=== PATIENT | female | born 1995 | race African-American/Black ===

== ENCOUNTER 2016-10-17 14:00 | Emergency (ER) | payer OTHER ==
[2016-10-17 14:15] VITALS: BP 111/75
--- NOTE | 2016-10-17 14:32 | ED Physician Documentation ---
PD HPI URI - Stated complaint Stated Complaint: SWOLLEN FACE - Chief complaint Chief Complaint: Heent - History obtained from History obtained from: Patient - History of Present Illness Timing - onset: How many days ago (2-3) Timing duration: Days Timing details: Gradual onset, Still present (worsening) Associated symptoms: Fever, Chills, Sore throat, Swollen nodes. No: Dry cough, NVD Contributing factors: No: Sick contact, Travel, Immunocompromised Improves by: No: Rest Worsened by: Activity Similar symptoms before: Has not had sx before Recently seen: Not recently seen Review of Systems Constitutional: reports: Fever, Chills, Myalgias Nose: denies: Rhinorrhea / runny nose, Congestion Throat: reports: Sore throat, Swollen tonsils Respiratory: denies: Cough GI: reports: Nausea. denies: Vomiting, Diarrhea Skin: denies: Rash, Lesions Musculoskeletal: denies: Neck pain PD PAST MEDICAL HISTORY - Past Medical History Past Medical History: No Endocrine/Autoimmune: None - Past Surgical History Past Surgical History: No - Present Medications Home Medications: Ambulatory Orders Medication Instructions Recorded Confirmed Cephalexin [Keflex] 500 mg PO QID #24 capsule 10/17/16 Dexamethasone [Decadron] 4 mg PO DAILY #5 tablet 10/17/16 HYDROcod/ACETAM 5/325 [[place] 5/325] 1 tab PO Q6H PRN #15 tablet 10/17/16 - Allergies Allergies/Adverse Reactions: Allergies Allergy/AdvReac Type Severity Reaction Status Date / Time iodine Allergy Unknown Verified 10/17/16 14:13 - Social History Does the pt smoke?: No Smoking Status: Never smoker PD ED PE NORMAL - Vitals Vital signs reviewed: Yes - General General: Alert and oriented X 3, Well developed/nourished - HEENT HEENT: Ears normal. No: Pharynx benign (tonsils enlarged with euxdate. No peritonsillar swelling nor deviation. ) - Neck Neck: Supple, no meningeal sign, Other (anterior adenopathy) - Cardiac Cardiac: RRR (tachy), No murmur - Respiratory Respiratory: Clear bilaterally - Abdomen Abdomen: Soft, Non distended - Derm Derm: Normal color, Warm and dry, No rash - Extremities Extremities: No tenderness to palpate, No edema, No calf tenderness / cord - Neuro Neuro: Alert and oriented X 3, No motor deficit, Normal speech Results - Vitals Vitals: Oxygen O2 Source Room air - Labs Labs: Laboratory Tests 10/17/16 14:37 Group A Strep Rapid POSITIVE H PD MEDICAL DECISION MAKING - ED course Complexity details: reviewed results, considered differential (still some tachycardic but appears okay, and no murmur nor rub, good vitals otherwise. It is sinus tachycardia. ), d/w patient Departure - Departure Disposition: Home, Self Care Clinical Impression: Acute streptococcal tonsillitis Qualifiers: Streptococcal tonsillitis recurrence: non-recurrent Qualified Code(s): J03.00 - Acute streptococcal tonsillitis, unspecified Condition: Stable Record reviewed to determine appropriate education?: Yes Instructions: ED Strep Pharyngitis Conf Follow-Up: SOPHIA Banerjee [Provider Group] Prescriptions: Dexamethasone [Decadron] 4 mg PO DAILY #5 tablet Cephalexin [Keflex] 500 mg PO QID #24 capsule HYDROcod/ACETAM 5/325 [[place] 5/325] 1 tab PO Q6H PRN #15 tablet PRN Reason: Pain Comments: Drink lots of fluids. Tylenol or ibuprofen if needed for fever and pains. Decadron daily for 5 days for inflammation of the tonsils. Cephalexin for the infection. Recheck if not improving over the next couple of days. Off work for 2 days due to illness. Forms: Activity restrictions Discharge Date/Time: 10/17/16 15:22
[2016-10-17] MEDS ORDERED: DEXAMETHASONE 10 MG/ML VIAL PO STA (14:41)
[2016-10-17] MEDS ORDERED: CEPHALEXIN 250 MG CAPSULE PO STA (14:41)
[2016-10-17] MEDS ORDERED: ONDANSETRON ODT 4 MG TABLET TL STA (14:41)
[2016-10-17] MEDS ORDERED: ACETAMINOPHEN 325 MG TABLET PO STA (14:41)
[2016-10-17] MEDS ORDERED: DEXAMETHASONE 10 MG/ML VIAL ONE (14:47)
[2016-10-17] MEDS ORDERED: ONDANSETRON ODT 4 MG TABLET ONE ×2 (14:47→14:48)
[2016-10-17] MEDS ORDERED: CHERRY SYRUP 10 ML UDC PO ONE (14:47)
[2016-10-17] MEDS ORDERED: ACETAMINOPHEN 325 MG TABLET PO ONE (14:47)
[2016-10-17] MEDS ORDERED: CEPHALEXIN 250 MG CAPSULE PO ONE (14:47)
[2016-10-17 14:49] LABS: RAPID STREP SCREEN REAGENT QC YELLOW (YELLOW)
== END 2016-10-17 15:22 | disposition home or self-care (01) ==
LOC: ED 14:00
DX: J03.00 Acute streptococcal tonsillitis, unspecified (principal)
CPT/HCPCS: 87430; 99283; A9270; Q0162

== ENCOUNTER 2019-02-10 07:32 | Emergency (ER) | payer OTHER ==
[2019-02-10] MEDS ORDERED: SODIUM CHLORIDE FLUSH 0.9% 10 ML SYRINGE ONE (08:23)
--- NOTE | 2019-02-10 08:24 | ED Physician Documentation ---
History of Present Illness - Stated complaint Stated Complaint: RASH/EYES SWELLING - Chief complaint Chief Complaint: Allergic Rx - History obtained from History obtained from: Patient - History of Present Illness Timing: Other (1 month ago) Pain level max: 0 Pain level now: 0 - Additonal information Additional information: Rash to the scalp, bilateral antecubital fossa and behind the knees bilaterally. Very itchy. Saw her doctor and was placed on oral steroids, states this did not seem to help much. She saw an business and marketing teacher as well and had allergy testing but does not have the results until she goes back to see him tomorrow. Review of Systems Constitutional: denies: Fever, Chills Ears: denies: Ear pain Nose: denies: Rhinorrhea / runny nose, Congestion Cardiac: denies: Chest pain / pressure Respiratory: denies: Cough GI: denies: Vomiting, Diarrhea Skin: denies: Rash Musculoskeletal: denies: Neck pain, Back pain Neurologic: denies: Headache PD PAST MEDICAL HISTORY - Past Medical History Past Medical History: Yes Endocrine/Autoimmune: None Derm: Eczema - Past Surgical History Past Surgical History: No - Present Medications Home Medications: Ambulatory Orders Medication Instructions Recorded Confirmed Triamcinolone 0.1% Cream [Kenalog 1 applic TOP BID PRN #2 tube 02/10/19 0.1% Cream] predniSONE [Deltasone] 10 mg PO [id number] #42 tab 02/10/19 - Allergies Allergies/Adverse Reactions: Allergies Allergy/AdvReac Type Severity Reaction Status Date / Time iodine Allergy Unknown Verified 02/10/19 07:42 - Social History Does the pt smoke?: No Smoking Status: Never smoker PD ED PE NORMAL - Vitals Vital signs reviewed: Yes - General General: Alert and oriented X 3, No acute distress - HEENT HEENT: Moist mucous membranes - Neck Neck: Supple, no meningeal sign - Cardiac Cardiac: RRR - Respiratory Respiratory: No respiratory distress, Clear bilaterally - Derm Derm: Warm and dry, Other (dry scaly patches to B Antecubital fossa and behind both knees. Also bilateral temporal areas.) - Neuro Neuro: Alert and oriented X 3 Results - Vitals Vitals: Vital Signs - 24 hr 02/10/19 02/10/19 07:39 08:58 Temperature 36.9 C Heart Rate 88 79 Respiratory 20 16 Rate Blood Pressure 131/85 H 123/99 H O2 Saturation 96 99 Oxygen O2 Source Room air PD MEDICAL DECISION MAKING - ED course Complexity details: considered differential, d/w patient ED course: Patient with what appears to be eczema. Will trial on steroids and triamcinolone cream. she will follow-up with her doctor for further care. Patient counseled regarding signs and symptoms for which I believe and urgent re-evaluation would be necessary. Patient with good understanding of and agreement to plan and is comfortable going home at this time This document was made in part using voice recognition software. While efforts are made to proofread this document, sound alike and grammatical errors may occur. Departure - Departure Disposition: Home, Self Care Clinical Impression: Eczema Qualifiers: Eczema type: unspecified Qualified Code(s): L30.9 - Dermatitis, unspecified Condition: Good Instructions: ED Dermatitis Atopic Eczema Follow-Up: your,doctor tomorrow [Other] Prescriptions: predniSONE [Deltasone] 10 mg PO [id number] #42 tab Triamcinolone 0.1% Cream [Kenalog 0.1% Cream] 1 applic TOP BID PRN #2 tube PRN Reason: eczema Comments: Use the medications as prescribed. Follow-up with your business and marketing teacher tomorrow. Return if you worsen. Discharge Date/Time: 02/10/19 08:58
[2019-02-10 08:59] VITALS: BP 123/99
== END 2019-02-10 08:58 | disposition home or self-care (01) ==
LOC: ED 07:32
DX: L30.9 Dermatitis, unspecified (principal)
CPT/HCPCS: 99282; 99284

== ENCOUNTER 2019-07-14 11:09 | Emergency (ER) | payer OTHER ==
[2019-07-14 12:37] LABS: BILIRUBIN,URINE NEGATIVE (NEGATIVE); GLUCOSE, URINE (UA) NEGATIVE (NEGATIVE); KETONES,URINE (UA) NEGATIVE (NEGATIVE); LEUKOCYTE ESTERASE, URINE NEGATIVE (NEGATIVE); NITRITE,URINE NEGATIVE (NEGATIVE); OCCULT BLOOD,URINE NEGATIVE (NEGATIVE); PH,URINE 7.5 PH (5.0-7.5); PROTEIN,URINE NEGATIVE (NEGATIVE); UROBILINOGEN,URINE 0.2 (NORMAL) E.U./dL (NORMAL)
[2019-07-14 12:47] LABS: BACTERIA,URINE None Seen /HPF (None Seen); CLARITY,URINE CLEAR (CLEAR); RBC,URINE None Seen /HPF (0-5); SQUAMOUS EPITHELIAL CELL,UR FEW Squamous (<= Few)
[2019-07-14 12:48] LABS: HCG UR QUAL NEGATIVE
--- NOTE | 2019-07-14 12:49 | ED Physician Documentation ---
PD HPI NVD - Stated complaint Stated Complaint: NAUSEA/DIZZINESS - Chief complaint Chief Complaint: General - History obtained from History obtained from: Patient - History of Present Illness Timing - onset: How many weeks ago (1) Timing - duration: Weeks (1) Timing - details: Gradual onset, Still present Associated symptoms: Abdominal pain, Dizzy. No: Fever Contributing factors: No: Sick contact, Bad food, Travel, Recent antibiotics, Alcohol use, Anticoagulated, Diabetes Improved by: Laying still Worsened by: Moving Similar symptoms before: Has not had sx before Recently seen: Not recently seen - Additonal information Additional information: Previously well 24-year-old female has developed nausea and vomiting as well as some left upper quadrant abdominal pain and she has become dizzy when she goes to get up and move around. She denies any dizziness just by moving her head. She has not had cough or congestion she has not had fever. She does not know why she developed the nausea and vomiting but she continues to be nauseated and she is not able to eat food or drink fluids without pain in her abdomen and nausea. She denies . Review of Systems Constitutional: denies: Fever, Chills, Myalgias Eyes: denies: Decreased vision Ears: denies: Ear pain Nose: denies: Rhinorrhea / runny nose, Congestion Throat: denies: Oral lesions / sores, Sore throat Cardiac: denies: Chest pain / pressure, Palpitations Respiratory: denies: Dyspnea, Cough GI: reports: Abdominal Pain, Nausea, Vomiting : denies: Dysuria, Frequency Skin: denies: Rash Musculoskeletal: denies: Neck pain, Back pain, Extremity pain PD PAST MEDICAL HISTORY - Past Medical History Endocrine/Autoimmune: None Derm: Eczema - Past Surgical History Past Surgical History: No - Present Medications Home Medications: Ambulatory Orders Medication Instructions Recorded Confirmed Ondansetron Odt [Zofran] 4 mg TL Q6H PRN #10 tablet 07/14/19 - Allergies Allergies/Adverse Reactions: Allergies Allergy/AdvReac Type Severity Reaction Status Date / Time iodine Allergy Unknown Verified 07/14/19 11:24 - Social History Does the pt smoke?: No Smoking Status: Never smoker Does the pt drink ETOH?: No Does the pt have substance abuse?: No - Immunizations Immunizations are current?: Yes PD ED PE NORMAL - Vitals Vital signs reviewed: Yes (normal ) - General General: Alert and oriented X 3, No acute distress, Well developed/nourished - HEENT HEENT: Atraumatic, PERRL, EOMI, Other (no nystagmus) - Neck Neck: Supple, no meningeal sign, No bony TTP - Cardiac Cardiac: RRR, Other (split second sound) - Respiratory Respiratory: No respiratory distress, Clear bilaterally - Abdomen Abdomen: Normal bowel sounds, Soft, Non distended, No organomegaly, Other (mild left upper quadrant tenderness without tenderness to the CVA) - Back Back: No CVA TTP, No spinal TTP - Derm Derm: Normal color, Warm and dry, No rash - Extremities Extremities: No deformity, No edema, No calf tenderness / cord - Neuro Neuro: supervisor prep 2-12 intact, No motor deficit, No sensory deficit, Normal speech Eye Opening: Spontaneous Motor: Obeys Commands Verbal: Oriented GCS Score: 15 - Psych Psych: Normal mood, Normal affect Results - Vitals Vitals: Vital Signs - 24 hr 07/14/19 07/14/19 07/14/19 11:15 11:22 13:13 Temperature 36.8 C Heart Rate 96 90 80 Respiratory 20 16 16 Rate Blood Pressure 123/74 126/74 108/74 O2 Saturation 99 100 100 07/14/19 07/14/19 14:26 14:58 Temperature 37 C 37.1 C Heart Rate 88 72 Respiratory 16 16 Rate Blood Pressure 106/71 110/65 O2 Saturation 100 100 Oxygen O2 Source Room air - Labs Labs: Laboratory Tests 07/14/19 07/14/19 07/14/19 11:55 13:05 13:05 WBC 4.0 L RBC 4.60 Hgb 12.5 Hct 39.2 MCV 85.2 MCH 27.2 MCHC 31.9 L RDW 13.1 Plt Count 296 MPV 8.7 Neut # (Auto) 2.2 Lymph # (Auto) 1.4 L [place] # (Auto) 0.4 Eos # (Auto) 0.1 Baso # (Auto) 0.0 Absolute Nucleated RBC 0.00 Nucleated RBC % 0.0 Sodium 137 Potassium 3.6 Chloride 102 Carbon Dioxide 26 Anion Gap 9.0 BUN 6 Creatinine 0.8 Estimated GFR (MDRD) 107 Glucose 88 Calcium 9.0 Total Bilirubin 0.9 AST 16 ALT 12 Alkaline Phosphatase 65 Total Protein 7.5 Albumin 4.0 Globulin 3.5 Albumin/Globulin Ratio 1.1 Lipase 22 Urine Color YELLOW Urine Clarity CLEAR Urine pH 7.5 Ur Specific [place] 1.010 Urine Protein NEGATIVE Urine Glucose (UA) NEGATIVE Urine Ketones NEGATIVE Urine Occult Blood NEGATIVE Urine Nitrite NEGATIVE Urine Bilirubin NEGATIVE Urine Urobilinogen 0.2 (NORMAL) Ur Leukocyte Esterase NEGATIVE Urine RBC None Seen Urine WBC 0-3 Ur Squamous Epith Cells FEW Squamous Urine Bacteria None Seen Urine Culture Comments NOT INDICATED Urine HCG, Qual NEGATIVE Procedures - IVC sono (time) 1245 Bedside IVC sono: IVC measures (cm) (1.09), Dehydration (est 1 liter deficit) PD MEDICAL DECISION MAKING - ED course Complexity details: reviewed old records, reviewed results, re-evaluated patient, considered differential, d/w patient ED course: Previously well 24-year-old female with nausea and vomiting is mildly dehydrated on interrogation the inferior vena cava.. She is administered normal saline and Zofran. Departure - Departure Disposition: 01 Home, Self Care Clinical Impression: Dehydration Vomiting Qualifiers: Vomiting type: unspecified Vomiting Intractability: non-intractable Nausea presence: with nausea Qualified Code(s): R11.2 - Nausea with vomiting, unspecified Condition: Stable Instructions: ED Dehydration, ED Nausea Vomiting Follow-Up: ALESSANDRO WELLS III, MD [Primary Care Provider] - Prescriptions: Ondansetron Odt [Zofran] 4 mg TL Q6H PRN #10 tablet PRN Reason: Nausea / Vomiting Discharge Date/Time: 07/14/19 14:58
[2019-07-14] MEDS: ONDANSETRON 4 MG/2 ML VIAL IVP STA (13:11)
[2019-07-14] MEDS: SODIUM CHLORIDE 0.9% 1,000 ML IV ONE (13:12)
[2019-07-14 13:14] LABS: BASOPHILS % (AUTO) 0.5 %; EOSINOPHILS # (AUTO) 0.1 10^3/uL (0.0-0.7); EOSINOPHILS % (AUTO) 1.7 %; HGB - HEMOGLOBIN 12.5 g/dL (12.0-16.0); LYMPHOCYTES # (AUTO) 1.4 10^3/uL (1.5-3.5); LYMPHOCYTES % (AUTO) 34.4 %; MEAN CORPUSCULAR HEMOGLOBIN 27.2 pg (27.0-31.0); MEAN CORPUSCULAR HGB CONC 31.9 g/dL (32.0-36.0); MEAN CORPUSCULAR VOLUME 85.2 fL (81.0-99.0); MEAN PLATELET VOLUME 8.7 fL (7.9-10.8); MONOCYTES # (AUTO) 0.4 10^3/uL (0.0-1.0); MONOCYTES % (AUTO) 9.4 %; NEUTROPHILS # (AUTO) 2.2 10^3/uL (1.5-6.6); NEUTROPHILS % (AUTO) 53.8 %; PLT - PLATELET COUNT 296 10^3/uL (130-450); RED CELL DISTRIBUTION WIDTH 13.1 % (12.0-15.0)
[2019-07-14 13:33] LABS: ALBUMIN/GLOBULIN RATIO 1.1 (1.0-2.2); BILIRUBIN,TOTAL 0.9 mg/dL (0.2-1.0); CREATININE 0.8 mg/dL (0.4-1.0); TOTAL PROTEIN 7.5 g/dL (6.7-8.2)
[2019-07-14 14:58] VITALS: BP 110/65
== END 2019-07-14 14:58 | disposition home or self-care (01) ==
LOC: ED 11:09
DX: E86.0 Dehydration (principal); R11.2 Nausea with vomiting, unspecified
CPT/HCPCS: 36415; 80053; 81001; 81025; 83690; 85025; 87086; 96361; 96374; 99284

== ENCOUNTER 2021-01-24 11:25 | Emergency (ER) | payer OTHER ==
[2021-01-24] MEDS ORDERED: predniSONE 20 MG TABLET PO STA (13:29)
--- NOTE | 2021-01-24 13:37 | ED Physician Documentation ---
History of Present Illness - Stated complaint Stated Complaint: BODY RASH/PAIN - Chief complaint Chief Complaint: Allergic Rx - History obtained from History obtained from: Patient - History of Present Illness Timing: How many weeks ago (1) Pain level max: 4 Pain level now: 3 - Additonal information Additional information: Patient is a 25-year-old female who presents to the emergency department stating for the past week she has had a rash started around her neck, ears and then down her back. She describes it as itchy and painful. Nothing makes it better or worse. 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 She states that it improved with prednisone. No fevers. No chills. No recent illnesses. No new medications, soaps, detergents, etc. Review of Systems Constitutional: denies: Fever, Chills Respiratory: denies: Cough GI: denies: Abdominal Pain, Nausea, Vomiting, Diarrhea : denies: Dysuria, Now EGA Neurologic: denies: Headache PD PAST MEDICAL HISTORY - Past Medical History Cardiovascular: None Respiratory: None Neuro: None Endocrine/Autoimmune: None GI: None PROFESSOR/NURSE ANESTHETIST: None : None HEENT: None Psych: None Musculoskeletal: Chronic back pain Derm: Eczema - Past Surgical History Past Surgical History: No - Present Medications Home Medications: Ambulatory Orders Medication Instructions Recorded Confirmed Loratadine/Pseudoephedrine 1 tab ORAL DAILY PRN 01/24/21 01/24/21 [Claritin-D 12 Hour Tablet] predniSONE [Deltasone] 10 mg PO [id number] #42 tab 01/24/21 - Allergies Allergies/Adverse Reactions: Allergies Allergy/AdvReac Type Severity Reaction Status Date / Time iodine Allergy Unknown Verified 01/24/21 11:45 shellfish derived Allergy Anaphylaxis Verified 01/24/21 11:45 - Social History Does the pt smoke?: No Smoking Status: Never smoker Does the pt drink ETOH?: Yes ETOH Use: Wine Does the pt have substance abuse?: No - Immunizations Immunizations are current?: Yes PD ED PE NORMAL - Vitals Vital signs reviewed: Yes - General General: Alert and oriented X 3, No acute distress - HEENT HEENT: Moist mucous membranes - Neck Neck: Supple, no meningeal sign - Cardiac Cardiac: RRR - Respiratory Respiratory: No respiratory distress, Clear bilaterally - Derm Derm: Warm and dry, Other (Diffuse maculopapular rash over the neck, tops of the ears, back. This is covered with a silvery scale. No evidence of infection. No pustules. No blisters) - Neuro Neuro: Alert and oriented X 3 - Psych Psych: Normal mood Results - Vitals Vitals: Vital Signs - 24 hr 01/24/21 01/24/21 11:46 14:21 Temperature 36.2 C L 36.5 C Heart Rate 80 80 Respiratory 18 16 Rate Blood Pressure 114/74 112/72 O2 Saturation 98 98 Oxygen O2 Source Room air PD MEDICAL DECISION MAKING - ED course Complexity details: considered differential, d/w patient ED course: Patient with what appears to be an eczematous rash. We will place her on a prednisone taper and have her follow-up with dermatology for further care. Patient counseled regarding signs and symptoms for which I believe and urgent re-evaluation would be necessary. Patient with good understanding of and agreement to plan and is comfortable going home at this time This document was made in part using voice recognition software. While efforts are made to proofread this document, sound alike and grammatical errors may occur. Departure - Departure Disposition: 01 Home, Self Care Clinical Impression: Dermatitis Condition: Good Instructions: ED Dermatitis Atopic Eczema Follow-Up: MARITZA RAMIREZ MD [Primary Care Provider] - Prescriptions: predniSONE [Deltasone] 10 mg PO [id number] #42 tab Comments: I spoke with Flavia NAQVI about seeing you for dermatology. The address is [address] [place], [place]. Phone number is [phone] Please call for an appointment. Your prescriptions were sent to [facility] in [place]. Forms: Activity restrictions Discharge Date/Time: 01/24/21 14:21
[2021-01-24 14:22] VITALS: BP 112/72
== END 2021-01-24 14:21 | disposition home or self-care (01) ==
LOC: ED 11:25
DX: L30.9 Dermatitis, unspecified (principal)
CPT/HCPCS: 99282; 99284; J7512

== ENCOUNTER 2021-03-14 15:58 | Emergency (ER) | payer OTHER ==
[2021-03-14 16:08] VITALS: BP 127/83
--- NOTE | 2021-03-14 17:10 | ED Physician Documentation ---
History of Present Illness - Stated complaint Stated Complaint: swollen lip, hot ear's w/ px - Chief complaint Chief Complaint: Allergic Rx - Additonal information Additional information: This is a very pleasant 25-year-old female that presents to the emergency department for evaluation of 2 days swelling to her external ears yellow crusting oozing as well as irritation and itch of her scalp. Approximately 48 hours before the symptoms began she had a we have placed in her hair that included tight braiding of the hair as well as some glue. She states she has had this done many times in the past but is never had a reaction. This afternoon she developed some mild swelling of her upper lip. She has no dysphonia swelling of the tongue or mouth. Full range of motion of the neck. Denies any history of diabetes or similar Review of Systems Constitutional: denies: Fever, Chills Ears: reports: Other (Swelling erythema and drainage of the external auricle) Nose: reports: Reviewed and negative Throat: reports: Reviewed and negative Cardiac: reports: Reviewed and negative Respiratory: reports: Reviewed and negative GI: reports: Reviewed and negative : reports: Reviewed and negative Skin: reports: Rash Musculoskeletal: reports: Reviewed and negative PD PAST MEDICAL HISTORY - Past Medical History Cardiovascular: None Respiratory: None Neuro: None Endocrine/Autoimmune: None GI: None ENROLLMENT CONSULTANT: None : None HEENT: None Psych: None Musculoskeletal: Chronic back pain Derm: Eczema - Past Surgical History Past Surgical History: No - Present Medications Home Medications: Ambulatory Orders Medication Instructions Recorded Confirmed Loratadine/Pseudoephedrine 1 tab ORAL DAILY PRN 01/24/21 01/24/21 [Claritin-D 12 Hour Tablet] predniSONE [Deltasone] 10 mg PO [id number] #42 tab 01/24/21 Mupirocin 2% Oint [Bactroban 2% 1 applic TOP BID #22 gm 03/14/21 Oint] cephALEXin [Keflex] 500 mg PO Q6H #28 cap 03/14/21 predniSONE [Deltasone] 40 mg PO DAILY 5 Days #10 tablet 03/14/21 - Allergies Allergies/Adverse Reactions: Allergies Allergy/AdvReac Type Severity Reaction Status Date / Time iodine Allergy Unknown Verified 03/14/21 16:08 shellfish derived Allergy Anaphylaxis Verified 03/14/21 16:08 - Social History Does the pt smoke?: No Smoking Status: Never smoker Does the pt drink ETOH?: Yes Does the pt have substance abuse?: No - Immunizations Immunizations are current?: Yes PD ED PE NORMAL - General General: Alert and oriented X 3, No acute distress, Well developed/nourished - HEENT HEENT: PERRL, EOMI, Ears normal, Moist mucous membranes, Other (Superficial swelling of the upper lip without erythema or induration. Bilateral upper ear auricles mildly erythematous with yellow serous drainage and crusting.) - Cardiac Cardiac: RRR, No murmur, No gallop - Respiratory Respiratory: No respiratory distress, Clear bilaterally - Abdomen Abdomen: Normal bowel sounds, Soft, Non tender - Back Back: No CVA TTP, No spinal TTP - Derm Derm: Normal color, Warm and dry, Other (Erythema and pruritus of the scalp surrounding the ears as well as on the upper forehead at the area where the glue for the weave has been placed.) - Extremities Extremities: No deformity - Neuro Neuro: Alert and oriented X 3, agricultural chemist 2-12 intact Eye Opening: Spontaneous Motor: Obeys Commands Verbal: Oriented GCS Score: 15 - Psych Psych: Normal mood Results - Vitals Vitals: Vital Signs - 24 hr 03/14/21 16:04 Temperature 36.0 C L Heart Rate 81 Respiratory 18 Rate Blood Pressure 127/83 H O2 Saturation 100 Oxygen O2 Source Room air PD MEDICAL DECISION MAKING - ED course Complexity details: reviewed results, re-evaluated patient, d/w patient ED course: 25-year-old female presents the emergency department for evaluation of scalp pruritus, erythema serous drainage and ear swelling. This is at the sites where a weave was recently placed as well as hair braiding. She has had this done many times in the past and never had no reaction but at this point it appears that she has developed a dermatitis as well is a subsequent secondary bacterial infection. She also reported that this afternoon she had some mild swelling of the lip. Th ere appears to be no tongue swelling or swelling of the floor of the mouth. Normal phonation and swallow. No indication of airway compromise. I discussed with patient that she most likely has a urgent dermatitis as well as a secondary bacterial infection. We discussed that it is likely she needs to have the weave and braid removed in order to reduce the contact irritant to the skin. She will be started on a burst of prednisone as well as Keflex and mupirocin ointment. Emergent return precautions were discussed for failure of symptoms to resolve or worsen Departure - Departure Disposition: 01 Home, Self Care Clinical Impression: Allergic dermatitis Allergic reaction Qualifiers: Encounter type: initial encounter Qualified Code(s): T78.40XA - Allergy, unspecified, initial encounter Cellulitis Qualifiers: Site of cellulitis: head Qualified Code(s): L03.811 - Cellulitis of head [any part, except face] Condition: Stable Record reviewed to determine appropriate education?: Yes Instructions: ED Cellulitis Ch, ED Allergic Reaction General Other Follow-Up: MARITZA RAMIREZ MD [Primary Care Provider] - Prescriptions: Mupirocin 2% Oint [Bactroban 2% Oint] 1 applic TOP BID #22 gm predniSONE [Deltasone] 40 mg PO DAILY 5 Days #10 tablet cephALEXin [Keflex] 500 mg PO Q6H #28 cap Comments: You were seen in the emergency department today for swelling of your ears crusty drainage and itch. This followed having a new we have placed 2 days prior. Unfortunately it looks like your skin is having a reaction. This is call dermatitis. Most likely to the glue used during the leak we have. I do recommend that you have the weave and glue removed. Unfortunately you have also developed a superficial secondary bacterial infection. This is called cellulitis Please fill the prescription for the mupirocin ointment and apply 2 or 3 times daily to the scalp and ears where they are inflamed and draining. Fill the prescription for the cephalexin and take 4 times daily for the next week. I evans ve also prescribed some prednisone which is a steroid that should help reduce some of the scalp inflammation and swelling. I suspect that the swelling in your lips may be related to the glue so it is imperative that you have the we have removed as soon as possible. If at any point you develop swelling in the face, tongue or mouth, you have difficulty swallowing or breathing then you are to return immediately to the ER for second evaluation. Your prescriptions have been sent electronically to the [facility] in [place].
== END 2021-03-14 17:38 | disposition home or self-care (01) ==
LOC: ED 15:58
DX: L23.9 Allergic contact dermatitis, unspecified cause (principal)
CPT/HCPCS: 99282; 99283

== ENCOUNTER 2021-03-20 19:13 | Emergency (ER) | payer OTHER ==
[2021-03-20 19:24] VITALS: BP 133/89
--- NOTE | 2021-03-20 19:42 | ED Physician Documentation ---
PD HPI SKIN - Stated complaint Stated Complaint: SKIN INFECTION - Chief complaint Chief Complaint: Wound - History obtained from History obtained from: Patient - Additional information Additional information: She developed burning rash above and posterior to the ears and on the upper helices as well. She was seen here 5 days ago for it, this started after having a new wig placed and during that procedure they use some sort of new oil on her scalp. When she was seen here she was felt to have cellulitis and dermatitis and was started on Keflex, prednisone, and mupirocin. She finished the predni sone and today starting to feel worse again with more burning and drainage. In the interim she did see dermatology who agreed with the treatment plan felt to just need more time to work. Review of Systems Constitutional: reports: Reviewed and negative Eyes: reports: Reviewed and negative Ears: reports: Reviewed and negative PD PAST MEDICAL HISTORY - Past Medical History Cardiovascular: None Respiratory: None Neuro: None Endocrine/Autoimmune: None GI: None PARER: None : None HEENT: None Psych: None Musculoskeletal: Chronic back pain Derm: Eczema - Past Surgical History Past Surgical History: No - Present Medications Home Medications: Ambulatory Orders Medication Instructions Recorded Confirmed Loratadine/Pseudoephedrine 1 tab ORAL DAILY PRN 01/24/21 01/24/21 [Claritin-D 12 Hour Tablet] predniSONE [Deltasone] 10 mg PO [id number] #42 tab 01/24/21 Mupirocin 2% Oint [Bactroban 2% 1 applic TOP BID #22 gm 03/14/21 Oint] cephALEXin [Keflex] 500 mg PO Q6H #28 cap 03/14/21 predniSONE [Deltasone] 40 mg PO DAILY 5 Days #10 tablet 03/14/21 Clobetasol 0.05% Oint [Temovate 1 applic TOP BID #2 tub 03/20/21 0.05% Oint] Sulfamethox/Trimeth 800/160 1 each PO BID #14 tablet 03/20/21 [Bactrim Ds 800/160] dexAMETHasone [Decadron] 4 mg PO BIDWM #10 tablet 03/20/21 - Allergies Allergies/Adverse Reactions: Allergies Allergy/AdvReac Type Severity Reaction Status Date / Time iodine Allergy Unknown Verified 03/20/21 19:23 shellfish derived Allergy Anaphylaxis Verified 03/20/21 19:23 - Social History Does the pt smoke?: No Smoking Status: Never smoker Does the pt drink ETOH?: Yes Does the pt have substance abuse?: No - Immunizations Immunizations are current?: Yes PD ED PE NORMAL - Vitals Vital signs reviewed: Yes - General General: Alert and oriented X 3, No acute distress - HEENT HEENT: Other (She has what looks like probably weeping dermatitis above and behind the ears on both sides. No obvious cellulitis.) - Neck Neck: Supple, no meningeal sign, No bony TTP - Neuro Neuro: Alert and oriented X 3, Normal speech - Psych Psych: Normal mood, Normal affect Results - Vitals Vitals: Vital Signs - 24 hr 03/20/21 19:19 Temperature 36 C L Heart Rate 105 H Respiratory 18 Rate Blood Pressure 133/89 H O2 Saturation 96 Oxygen O2 Source Room air - Labs Labs: Laboratory Tests 03/20/21 03/20/21 17:50 17:50 WBC 11.5 H RBC 4.75 Hgb 13.5 Hct 41.3 MCV 86.9 MCH 28.4 MCHC 32.7 RDW 13.2 Plt Count 306 MPV 8.7 Neut # (Auto) 7.4 H Lymph # (Auto) 3.1 [place] # (Auto) 0.8 Eos # (Auto) 0.1 Baso # (Auto) 0.0 Absolute Nucleated RBC 0.00 Nucleated RBC % 0.0 Sodium 143 Potassium 3.6 Chloride 104 Carbon Dioxide 30 Anion Gap 9.0 BUN 13 Creatinine 1.0 Estimated GFR (MDRD) 82 L Glucose 86 Calcium 9.2 PD MEDICAL DECISION MAKING - ED course ED course: A culture was taken, but at this point it looks more inflamed than infected. I am going to check a CBC just to make sure her white count is not terrible and then plan to start high potency topical steroids and a different oral steroid pending follow-up. The modest elevation of the white count could be infection or sepsis from the steroids. We will cover her for MRSA pending culture with Bactrim. Departure - Departure Disposition: 01 Home, Self Care Clinical Impression: Cellulitis, Allergic dermatitis Condition: Good Record reviewed to determine appropriate education?: Yes Instructions: Cellulitis Dc Prescriptions: Sulfamethox/Trimeth 800/160 [Bactrim Ds 800/160] 1 each PO BID #14 tablet dexAMETHasone [Decadron] 4 mg PO BIDWM #10 tablet Clobetasol 0.05% Oint [Temovate 0.05% Oint] 1 applic TOP BID #2 tub Comments: I sent prescriptions electronically to [facility] in [place]. Return for new or worsening symptoms. Follow-up with a senior informatica etl developer in a week if not better. We are performing a wound culture, the results should be done in 48-72 hours. If antibiotic change is necessary we will call you. Return if worse in the meantime, especially if you develop increased pain, fevers, cannot keep down the medication. Otherwise follow-up with your physician in approximately 2-3 days. Discharge Date/Time: 03/20/21 20:13
[2021-03-20 19:54] LABS: BASOPHILS % (AUTO) 0.3 %; EOSINOPHILS # (AUTO) 0.1 10^3/uL (0.0-0.7); EOSINOPHILS % (AUTO) 1.2 %; HCT - HEMATOCRIT 41.3 % (37.0-47.0); HGB - HEMOGLOBIN 13.5 g/dL (12.0-16.0); LYMPHOCYTES # (AUTO) 3.1 10^3/uL (1.5-3.5); LYMPHOCYTES % (AUTO) 26.7 %; MEAN CORPUSCULAR HEMOGLOBIN 28.4 pg (27.0-31.0); MEAN CORPUSCULAR HGB CONC 32.7 g/dL (32.0-36.0); MEAN CORPUSCULAR VOLUME 86.9 fL (81.0-99.0); MEAN PLATELET VOLUME 8.7 fL (7.9-10.8); MONOCYTES # (AUTO) 0.8 10^3/uL (0.0-1.0); MONOCYTES % (AUTO) 6.9 %; NEUTROPHILS # (AUTO) 7.4 10^3/uL (1.5-6.6); NEUTROPHILS % (AUTO) 64.6 %; PLT - PLATELET COUNT 306 10^3/uL (130-450); RED BLOOD COUNT 4.75 10^6/uL (4.20-5.40); RED CELL DISTRIBUTION WIDTH 13.2 % (12.0-15.0); WHITE BLOOD COUNT 11.5 x10^3/uL (4.8-10.8)
[2021-03-20 20:02] LABS: CALCIUM 9.2 mg/dL (8.5-10.3); POTASSIUM 3.6 mmol/L (3.5-5.0)
[2021-03-20] MEDS ORDERED: DEXAMETHASONE 10 MG/ML VIAL PO STA (20:03)
[2021-03-20] MEDS ORDERED: SULFAMETH/TRIMETH DS 800/160 MG TABLET PO STA (20:03)
[2021-03-20] MEDS ORDERED: CHERRY SYRUP 10 ML UDC PO ONE (20:03)
== END 2021-03-20 20:13 | disposition home or self-care (01) ==
LOC: ED 19:13
DX: L03.811 Cellulitis of head [any part, except face] (principal); L23.9 Allergic contact dermatitis, unspecified cause
CPT/HCPCS: 36415; 80048; 85025; 87070; 87077; 87205; 99283; A9270; 87181